=== PATIENT | male | born 1945 | race Caucasian/White ===

== ENCOUNTER → 2024-11-13 | Outpatient (CLI) | payer MEDICARE ==
--- NOTE | 2024-11-14 11:46 | MR ---
EXAMINATION TYPE: MR lumbar spine wo con DATE OF EXAM: 11/13/2024 5:11 PM COMPARISON: None. CLINICAL INDICATION: Male, 78 years old with history of M54.50 LOW BACK PAIN R20.2 PARESTHESIA OF SKI N; PHH, Low back pain into legs, mostly Rt side, Some numbness into thighs TECHNIQUE: Multi planar, multi sequence imaging was performed utilizing: T1-weighted, T2-weighted, a nd turbo inversion recovery imaging of the lumbar spine. IV Contrast: mL (None, if empty) FINDINGS: Alignment: The lumbar vertebral bodies have preserved heights with scoliosis alignment levoscoliosis apex L3. Cord: The conus medullaris and the distal spinal cord appear unremarkable with regards to their signa l intensity and morphology. Bones/Discs: Moderate degeneration changes throughout the spine with osteophyte formation and facet j oint arthropathy. Multilevel disc desiccation is present. Reactive adjoining endplate edema at L3-L4 in the anterior endplate of L1. T12-L1: No evidence of significant spinal canal stenosis or neural foraminal stenosis. L1-L2: No evidence of significant spinal canal stenosis. Facet joint arthropathy mild bilateral neura l foraminal stenosis. L2-L3: Disc bulge and facet joint arthropathy result in mild spinal canal and moderate bilateral neur al foraminal stenosis. L3-L4: Disc bulge and facet joint arthropathy result in severe spinal canal and severe right and mode rate to severe left neural foraminal stenosis. L4-L5: Disc bulge and facet joint arthropathy result in severe spinal canal and moderate to severe bi lateral neural foraminal stenosis. L5-S1: The disc has a rounded posterior morphology without significant spinal canal stenosis. Facet j oint arthropathy with mild bilateral neural foraminal stenosis. No significant spinal canal or neural foraminal stenosis in the remainder of the visualized levels. Other findings: None. IMPRESSION: 1. Severe spinal canal stenosis at L3-L4 L4-L5 secondary disc bulge and facet joint arthropathy. Thi s also degrees of neural foraminal stenosis at these levels. 2. Moderate degeneration changes with scoliosis throughout the spine. [facility], , 11/14/2024 11:44 AM
== END | disposition home or self-care (01) ==
LOC: RADMRIMAIN 16:07
PROVIDERS: ATTEND Family Medicine
DX: M48.061 Spinal stenosis, lumbar region without neurogenic claudication (principal); M51.360 Other intervertebral disc degeneration, lumbar region with discogenic back pain only; R20.2 Paresthesia of skin; M47.816 Spondylosis without myelopathy or radiculopathy, lumbar region; M41.86 Other forms of scoliosis, lumbar region
CPT/HCPCS: 72148

== ENCOUNTER → 2025-01-31 | Outpatient (CLI) | payer MEDICARE | END | disposition home or self-care (01) | LOC: LABWHC1 10:41 | PROVIDERS: ATTEND Orthopaedic Surgery | DX: Z01.812 Encounter for preprocedural laboratory examination (principal); Z22.322 Carrier or suspected carrier of Methicillin resistant Staphylococcus aureus; M48.062 Spinal stenosis, lumbar region with neurogenic claudication | CPT/HCPCS: 86850; 86900; 86901; 87070 ==

== ENCOUNTER 2025-02-07 09:45 | Observation (INO) | payer MEDICARE ==
[2025-02-04 14:52] VITALS: BMI 33.0
--- NOTE | 2025-02-07 07:04 | P.HPOR ---
History of Present Illness H&P Date: 01/31/25 [facility] PROVIDER: LASHELL Jan 31, 2025 10:00?AM SPINE SURGERY H&P CLINICAL AND RISK REVIEW CHICO BERMAN is a 79 YO MALE presenting for evaluation of LOW BACK PAIN AND LE WEAKNESS. It was my pleasure to have seen and examined CHICO BERMAN . In our visit today we have had a chance to go over subjective complaints, physical examination findings and treatments including the natural course history without intervention and various interventional options. 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 Based on the patients imaging, physical exam, and the rapid progression and disabling nature of their symptoms, at this time I recommend surgery in the form of a: L3-5 DECOMPRESSIVE LAMINECTOMY WITH POSTEROLATERAL AND INTERBODY FUSION. I discussed the risk and benefits of this procedure at length with CHICO BERMAN . The patient has agreed to consider pursuing the procedure above mentioned. Prior to surgery, they should follow up with her PCP (Cardio, ID, IM etc) for clearance. Questions were invited and answered, and the patient wishes to proceed as outlined below. Currently, I am recommending: L3-5 DECOMPRESSIVE LAMINECTOMY WITH POSTEROLATERAL AND INTERBODY FUSION Obtain appropriate presurgical workup and clearances as discussed with the patient. Review of surgical risks and benefits as well as an educational packet on the proposed surgical procedure. Risks: All surgical procedures come with inherent risks, including those related to positioning, anesthesia, intraoperative findings, and postoperative complications. It is important to understand that surgery does not come with any guarantee of a successful outcome as complications and adverse events are always possible. The patient was given a handout in the office today discussing the surgical procedure and risks associated with the intervention, both of which were discussed with the patient. These risks include but are not limited to the following: Experiencing same, different or even worse symptoms in back, neck, arms, or legs compared to before surgery. Requiring further surgery or other forms of treatment presently or at some time in the future at same or other levels of the intended spine surgery. On an extreme but fortunately relatively rare basis severe complications such as blindness, stroke, heart attack, temporary and/or permanent nerve injury , paralysis, coma, or may occur, sometimes without known explanation. Surgical complications may include but are not limited to risk of infection, fluid accumulation in the surgical dissection site, including a seroma or hematoma, that requires additional surgery, wound drainage, bleeding, new numbness or weakness, vision changes/loss, spinal fluid leakage, non-healing and/or infected incision, headaches, difficulty or inability to swallow, hoarseness, hemopneumothorax, pneumothorax, impotence, retrograde ejaculation, vaginal dryness; injury to nerves, spinal cord, blood vessels, lymphatics or other vital organs (i.e., bowel injury, injury to the great vessels); heterotopic bone formation; complications related to the hardware such as screws, rods, cages including misplaced hardware, device failure, instrumentation at the wrong spine level, hardware fracture/breakage, or hardware loosening; vertebral failure of the spinal column above or below the newly placed hardware; retained surgical instrumentations or devices and the need for further surgery. Medical risks of the planned spine surgery include but are not limited to generalized Infections to the whole body or local areas outside of the surgical site (sepsis), heart attack, bleeding, anaphylaxis, meningitis, seizure, epilepsy, hearing loss, burn jackson, laceration of the head or other areas of the body, bruising, hypersensitivity of the skin, bladder over distension; allergic reaction; shoulder injury related to positioning; fat, blood and air clots to other areas of the body like heart, lungs, brain; failure of internal organs such as lungs, kidneys, liver and excessive bleeding. If blood transfusions are necessary, note that transfusions may cause intolerance reactions such as anaphylaxis or other complex reactions. Despite best efforts, the results of spine surgery might not heal in terms of bone, soft tissues such as skin, fascia, ligaments, and joints. Additionally, in order to achieve best possible results, spine surgery may be carried out beyond the initially planned levels and involve decompression, fusion including insertion of hardware at levels other than the original intended area of surgical interest change some portions of the procedure in order to ensure the best possible outcomes. With spine surgery and spinal fusion, there are different off label uses of instrumentation (devices, implants and hardware) as well as biological substances (bone morphogenic proteins, demineralized bone matrix) as well as using extra bone from allograft sources (i.e. cadaver bone) or autograft (iliac crest bone, ribs, or the spine itself). The patient has been given information about these practices and their inherent risks and benefits. The patient has had a chance to review all the listed information, has been given print outs detailing this information, and has had all his/her questions answered to their satisfaction. It was my pleasure to have seen and examined CHICO BERMAN . In our visit today we have had a chance to go over my understanding of our patient's current condition, the natural course history without intervention and various interventional options. Questions were invited and answered, and the patient wishes to proceed as outlined above. I have seen and examined the patient for 25 minutes and we have spent more than 50% of the time in repeat and detailed couns eling about the patient's condition, its natural course history without and as much as can be predicted with surgery and re-review of various surgical treatment options. In conclusion, CHICO BERMAN and their family requested we proceed with the above suggested surgery and are willing to accept risks and limitations of the suggested surgery as the nature of the disease process and our best attempts at treatment for the condition. In our visit today the patient and I have had a chance to go over my understanding of their current condition, the natural course history without intervention and various interventional options. Questions were invited and answered, and the patient wishes to proceed as outlined above. I will be sure to keep you updated after the patient returns here for further follow-up. Thank you again for your referral. Please do not hesitate to contact me if you have any further questions. Signed and authenticated by: Feb 02, 2025 1:15?PM EDT DO Bonnie Sheriff [facility] Minim[facility] [address] [facility], [address] [address] This document is confidential, intended only for the named recipient(s) and may contain information that is privileged or exempt from disclosure under applicable law. If you are not the intended recipient(s), you are notified that the dissemination, distribution or copying of this information is strictly prohibited. If you received this message in error, please notify the sender then delete this message. Past Medical History Past Medical History: Hyperlipidemia, Hypertension, Osteoarthritis (OA), Skin Disorder Additional Past Medical History / Comment(s): Psoriasis. History of Any Multi-Drug Resistant Organisms: None Reported Past Surgical History: Hernia Repair, Joint Replacement Additional Past Surgical History / Comment(s): Ventral hernia repair, bilateral knee replacements. Past Anesthesia/Blood Transfusion Reactions: No Reported Reaction, Motion Sickness Smoking Status: Former smoker - Past Family History Brother(s) Family Medical History: Cancer Medications and Allergies Home Medications Medication Instructions Recorded Confirmed Type Acetaminophen [Tylenol Extra 500 - 1,000 mg PO Q4-6H PRN 02/04/25 02/04/25 History Strength] Acetylcysteine [Nac] 600 mg PO HS 02/04/25 02/04/25 History Aspirin [Adult Low Dose Aspirin EC] 81 mg PO HS 02/04/25 02/04/25 History Cholecalciferol [Vitamin D3 (125 125 mcg PO DAILY 02/04/25 02/04/25 History Mcg = 5000 Iu)] Cranberry Fruit Extract [Cranberry] 500 mg PO DAILY 02/04/25 02/04/25 History Fenofibrate Nanocrystallized 145 mg PO HS 02/04/25 02/04/25 History [Fenofibrate] Lisinopril-Hctz 20-12.5 mg 1 tab PO QAM 02/04/25 02/04/25 History [Zestoretic 20-12.5] Magnesium Glycinate 500 mg PO HS 02/04/25 02/04/25 History Magnesium. 420 mg PO HS 02/04/25 02/04/25 History Multivitamins, Thera [Multivitamin 1 tab PO DAILY 02/04/25 02/04/25 History (formulary)] Naproxen (Unknown Dose) 1 tab PO BID 02/04/25 02/04/25 History Quercetin 500 mg PO HS 02/04/25 02/04/25 History Saw [place] 500 mg PO DAILY 02/04/25 02/04/25 History Tumeric (Unknown Dose) 1 tab PO DAILY 02/04/25 02/04/25 History Ubidecarenone [Co Q-10] 100 mg PO HS 02/04/25 02/04/25 History Zinc (Unknown Dose) 1 tab PO HS 02/04/25 02/04/25 History lysine HCL [l-Lysine] 500 mg PO HS 02/04/25 02/04/25 History Allergies Allergy/AdvReac Type Severity Reaction Status Date / Time Penicillins Allergy Rash/Hives Verified 02/04/25 14:52 Tape Allergy Severe Rash/Hives Uncoded 02/04/25 14:52 Physical Examination Osteopathic Statement: *. No significant issues noted on an osteopathic structural exam other than those noted in the History and Physical/Consult.
[~2025-02-07 09:45] MED LIST: ACETAMINOPHEN TAB 500 MG TAB PO PRN; LIDOCAINE 1% (10MG/ML) FOR IV START INTRADERMA PRN; ONDANSETRON 4 MG/2 ML VIAL IVP PRN; TRANEXAMIC 1,000 MG/100ML-NACL 1,000 MG in SALINE 1 100ML.BAG IVPB PRN
[2025-02-07] MEDS: IV FLUID CONTINUATION 1,000 ML IV ONE ×5 (10:07→16:10)
[2025-02-07] MEDS: ONDANSETRON 4 MG/2 ML VIAL IVP ONE (10:44)
[2025-02-07] MEDS: LACTATED RINGERS 1,000 ML IV SCH (10:44)
[2025-02-07] MEDS: GABAPENTIN 300 MG CAP PO PRN (10:44)
[2025-02-07] MEDS ORDERED: ROCURONIUM 10 MG/ML (5 ML VIAL) IV ONE (12:37)
[2025-02-07] MEDS ORDERED: SUCCINYLCHOLINE CHLORIDE 200 MG/10 ML VIAL IV ONE (12:37)
[2025-02-07] MEDS ORDERED: NEOSTIGMINE 1 MG/ML 10 ML VIAL ONE (12:37)
[2025-02-07] MEDS ORDERED: TRANEXAMIC 1,000 MG/100ML-NACL PREMIX BAG ONE (12:37)
[2025-02-07] MEDS ORDERED: KETAMINE HCL IN 0.9 % NACL 50 MG/5 ML SYRINGE ONE (12:37)
[2025-02-07] MEDS ORDERED: ePHEDrine 50 MG/ML 1 ML VIAL ONE (12:37)
[2025-02-07] MEDS ORDERED: fentaNYL (PF) 50 MCG/ML 2 ML AMP ONE (12:37)
[2025-02-07] MEDS ORDERED: GLYCOPYRROLATE 0.2 MG/ML 2 ML VIAL ONE (12:37)
[2025-02-07] MEDS ORDERED: PROPOFOL 10 MG/ML 20 ML VIAL IV ONE (12:37)
[2025-02-07] MEDS ORDERED: LIDOCAINE 1% INJ 10MG/ML (20 ML MDV) ONE (12:37)
[2025-02-07] MEDS: THROMBIN (BOVINE) 5,000 UNIT VIAL TOPICAL ONE (13:53)
[2025-02-07] MEDS: GENTAMICIN 80 MG in SODIUM CHLORIDE 0.9% IRRIGATIO 3,000 ML IRRIGATION ONE (14:04)
[2025-02-07] MEDS: ceFAZolin 3,000 MG in SODIUM CHLORIDE 0.9% IRRIGATIO 3,000 ML IRRIGATION ONE (14:04)
[2025-02-07] MEDS: LACTATED RINGERS 1,000 ML IV ONE ×2 (14:28)
[2025-02-07] MEDS: VANCOMYCIN 1,000 MG VIAL MISCELLANE ONE (14:30)
[2025-02-07] MEDS ORDERED: MAG HYDROX/AL HYDROX/SIMETH 30 ML CUP PO PRN (15:45)
[2025-02-07] MEDS ORDERED: ONDANSETRON 4 MG/2 ML VIAL IVP PRN (15:45)
--- NOTE | 2025-02-07 15:49 | FL ---
EXAMINATION TYPE: FL guidance operating room, XR lumbar spine 2 or 3V DATE OF EXAM: 02/07/2025 FLUOROSCOPY L3-L5 LAMINECTOMY AND FUSION. 2.08 MINS FLUORO 13 IMAGES DAP=51.866 Gycm2 [facility], Workstation: [facility], 02/07/2025 3:47 PM
--- NOTE | 2025-02-07 16:10 | P.OP ---
Date of Procedure: 02/07/25 Preoperative Diagnosis: 1. 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 NEUROGENIC CLAUDICATION 3. LUMBAR STENOSIS WITH RADICULOPATHY B/L LE 4. LOW BACK PAIN 5. BLE WEAKNESS Postoperative Diagnosis: 1. 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 NEUROGENIC CLAUDICATION 3. LUMBAR STENOSIS WITH RADICULOPATHY B/L LE 4. LOW BACK PAIN 5. BLE WEAKNESS Procedure(s) Performed: 1. L3-4 INTRADISCAL, 3 COLUMN, OSTEOTOMY FOR DEFORMITY CORRECTION 2. L4-5 3. L3-4 POSTEROLATERAL AND INTERBODY FUSION 4. L4-5 5. SEGMENTAL INSTRUMENTATION L3-5 6. L3-4 AND L4-5 BILATERAL LAMINECTOMY, COMPLETE FACETECTOMY AND FORAMINOTOMY FOR COMPLETE NEURAL DECOMPRESSION, DEFORMITY CORRECTION AND CAGE PLACEMENT 7. INSERTION OF BIOMECHANICAL DEVICE x2 CAGES L3-4, L4-5 USE OF IONM ALL SCREWS TESTING > 20 mA MOD22: THIS CASE TOOK 60% LONGER THAN EXPECTED DUE TO COMORBID CONDITIONS, BMI >30; EXTENT OF LUMBAR DISEASE AND TECHNICALLITY OF THE CASE. Implants: -FRANSISCO EVEREST RODS AND SCREWS -GLOBUS SABLE CAGE 8 DEG, LONG 7-12 MM, 10 AND 12 mm WIDTH -ARTHROCELL, ALLOCELL, FRANSISCO DBM, AUTOGRAFT, CONTOUR Anesthesia: GETA Surgeon: Daniel Meza Produce Wrapper #1: Marco A Gore (was present and assisted with all aspects of the case from position to dressing placement. ) Estimated Blood Loss (ml): 350 IV fluids (ml): 1,650 Urine output (ml): 320 Pathology: none sent Condition: stable Disposition: PACU Indications for Procedure: CHICO BERMAN is a 79 YO MALE presenting for evaluation of LOW BACK PAIN AND LE WEAKNESS. It was my pleasure to have seen and examined CHICO BERMAN . In our visit today we have had a chance to go over subjective complaints, physical examination findings and treatments including the natural course history without intervention and various interventional options. 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 Based on the patients imaging, physical exam, and the rapid progression and disabling nature of their symptoms, at this time I recommend surgery in the form of a: L3-5 DECOMPRESSIVE LAMINECTOMY WITH POSTEROLATERAL AND INTERBODY FUSION. I discussed the risk and benefits of this procedure at length with CHICO BERMAN . The patient has agreed to consider pursuing the procedure above mentioned. Prior to surgery, they should follow up with her PCP (Cardio, ID, IM etc) for clearance. Questions were invited and answered, and the patient wishes to proceed as outlined below. Currently, I am recommending: L3-5 DECOMPRESSIVE LAMINECTOMY WITH POSTEROLATERAL AND INTERBODY FUSION Description of Procedure: L3-5 decompression fusion open, free hand. The patient was seen and examined in the preoperative area. All preoperative protocols were followed. Informed consent was obtained, risks and benefits of the procedure were discussed at length. Risks including bleeding infection damage to the surrounding tissue and risk of reoperation were discussed with the patient. Risk of anesthesia up to and including was discussed with the patient. These are outlined in the risk review. They were willing to accept these risks and all the risks of surgery. The patient was given a weight-based dose of antibiotics in the form of 2 g Ancef. The patient was seen and evaluated by the anesthesia team who deemed them fit for surgery. The site was marked, the patient was willing to proceed with the procedure. The patient was transferred to the operative suite by the Department of an esthesia. They were then drifted off to sleep by the department anesthesia and GETA was performed. The patient tolerated this well. Hernnádez catheter was placed by nursing staff, a-traumatically. Once confirmation of lines and ventilation the patient was transferred to a prone Mohan table very carefully. All bony prominences including wrists, elbows, axilla, chest, hips, and thighs, and feet were padded very well. Special attention was paid to the genitalia, and these were padded accordingly. SCDs were placed on bilateral lower extremities and were connected. Arms were well padded and placed on arm boards up and out in the 90/90 position. Once in position, again we confirmed good ventilation capabilities and that lines were running appropriately. The patients Lumbar spine was then exposed. 1010s were placed outlining the incision site. Standard alcohol was used to clean the incision site and allowed to dry. C-arm was used to needle localize the pedicles at L3-5 and bio-ivania the patient and confirm level for incision which was marked with a skin marker. Operative briefing was performed with all teams and everyone in agreement to proceed. The patient was then prepped and draped in a normal sterile fashion. Timeout was then performed, and all parties agreed with the procedure to be performed. Midline skin incision was made over the previously bio-marked area and diss ection taken down over the SP of L3-L5. L3-5 was taken out over facet joints and TPs and a penfield 4 used to ivania the L4 pedicle. Lateral image used to confirm levels. Once confirmed, screws were removed from L4-5 b/l along with rods. The L4 screws were loose b/l and when removed there was still motion at this segment. The fusion was explored and there was minimal bone formation posteriorly. We then proceeded to place screws b/l at pedicles from L3-5 using Lateral C arm and free hand technique. Bo was used to create a aeroplane pilot hole, gear shift passed then a ball tip feeler to confirm within the pedicles. Screw was measured and placed. Once screws were placed they were confirmed to be in good position using AP and Lateral fluoroscopy. The wound was then irrigated. Screws were tested and all tested above 20 mA. We then proceeded to decompression and cage placement. Attention was then turned to interbody fusion at L4-5. Bilateral laminectomy, complete facetectomy and foraminotomy performed at L4-5 using high speed bo and Kerrison rongeur. The ligamentum was removed and the dural sac decompressed. Exiting and traversing roots visualized and decompressed. Neural elements were then protected, and disc space accessed with an osteotome. Intradiscal, 3 column, osteotomy was then done for deformity correction. Osteotome was passed into the anterior ? of the L4 vertebral body followed by the same at the cranial portion of L5. This allowed for loosening of the level. The ALL was carefully stretched with distraction. Complete discectomy was then done with ana laura, curette, rongure etc. Sequential shaving then done under lateral imaging and complete discectomy performed using ana laura, pituitary and curette. Once good bleeding endplates accomplished and good height latter day with trials, a combination of autograft, allograft and synthetic placed anterior in the disc space. The cage was then selected and impacted into place under lateral imaging. The cage was then expanded restoring height, lordosis and alignment. The cage was backfilled with bone graft through a funnel. The sap analyst was removed and the area inspected. Good cage placement, stable cage and no injuries. Area was irrigated copiously, and meticulous hemostasis achieved. The wound and disc spaces were irrigated and meticulous hemostasis achieved. Attention was then turned to interbody fusion at L3-4. Bilateral laminectomy, complete facetectomy and foraminotomy performed at L3-4 using high speed bo and Kerrison rongeur. The ligamentum was removed and the dural sac decompressed. Exiting and traversing roots visualized and decompressed. Neural elements were then protected, and disc space accessed with an osteotome. Intradiscal, 3 column, osteotomy was then done for deformity correction. Osteotome was passed into the anterior ? of the L3 vertebral body followed by the same at the cranial portion of L4. This allowed for loosening of the level. The ALL was carefully stretched with distraction. Complete discectomy was then done with ana laura, curette, rongure etc. Sequential shaving then done under lateral imaging and complete discectomy performed using ana laura, pituitary and curette. Once good bleeding endplates accomplished and good height latter day with trials, a combination of autograft, allograft and synthetic placed anterior in the disc space. The cage was then selected and impacted into place under lateral imaging. The cage was then expanded restoring height, lordosis and alignment. The cage was backfilled with bone graft through a funnel. The inse rter was removed and the area inspected. Good cage placement, stable cage and no injuries. The area was irrigated copiously, and meticulous hemostasis achieved. The wound and disc spaces were irrigated and meticulous hemostasis achieved. Rods were then sized and selected and placed into L5 screws b/l. Set screws locked these in place and then sequentially reduced into L4 and L3 b/l for reduction of listhesis. This was accomplished. Set screws were then all placed and finally tightened. A cross link was selected and placed and final tightened. TPs were then decorticated with a high speed bo. The wound was irrigated with 3L Ancef irrigation, 3L gentamicin irrigation, 1L Irricept, 1L Betadine and 3L NSS. Surgicel was placed over the dura. Autograft and MagnatOs then placed in the posterolateral gutters and impacted into place. Deep drain placed and secured to the skin. 2 g Vancomycin powder placed in the wound bed. Final images confirmed good placement of hardware and good reduction of listhesis as well as latter day of height and lordosis. Fascia was then closed with #1 PDS. Deep subq closed with 0 Vicryl. Superficial subq closed with 2-0 Vicryl and skin with yfn. Wound edges approximated very well. The wound was then cleaned with alcohol and dried. Wounds dressed with adaptic, 4x4, abd drain sponge and tegaderms. The patient was then transferred off the table back to their hospital bed a- traumatically. The drain continued to hold suction. They were extubated by the department of anesthesia. They were then transferred to PACU in stable condition having tolerated the procedure with no complications.
[2025-02-07] MEDS: HYDROmorphone 0.5 MG/0.5 ML SYRINGE IVP PRN ×2 (16:29→20:53)
[2025-02-07] MEDS: GABAPENTIN 300 MG CAP PO SCH (19:36)
[2025-02-07] MEDS: FENOFIBRATE 160 MG TAB PO SCH (20:53)
[2025-02-07] MEDS ORDERED: NON FORMULARY DRUG (Acetylcysteine [Nac] 500 MG Capsule) PO SCH (21:00)
[2025-02-08] MEDS: HYDROcodone/APAP 5-325MG 1 EACH TAB PO PRN (00:20)
[2025-02-08] MEDS: CYCLOBENZAPRINE 5 MG TAB PO PRN (00:20)
[2025-02-08] MEDS: ACETAMINOPHEN TAB 325 MG TAB PO SCH (06:12)
--- NOTE | 2025-02-08 07:35 | CT ---
EXAMINATION TYPE: CT lumbar spine wo con DATE OF EXAM: 02/08/2025 12:13 AM COMPARISON: MRI 11/23/2024. CLINICAL INDICATION: Male, 79 years old with history of S/P l3-l3 DECOMPR FUSION; PHH, S/P l3-l3 DECO MPR FUSION TECHNIQUE: CT of the lumbar spine without contrast. Coronal and sagittal reconstructions performed. CT DLP: 1589.7 mGycm, Automated exposure control for dose reduction was used. FINDINGS: Redemonstrated degenerative levoconvex scoliosis lumbar spine. 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 Postsurgical change with laminectomies L3-L5 and placement of posterior and interbody lumbar fusion h ardware at these levels as well. Lateral osseous fusion bone graft material extends up to the L1 leve l. Posterior midline skin yfn and scattered subcutaneous and extradural air related to the surgery. Surgical drain is present. Deeper compression of the spinal canal at the L3-L4 and L4-L5 levels. Mild to moderate degenerative d isc disease remains along the other levels with posterior disc bulge impressing on the ventral thecal sac at L1-L2 and L2-L3. Degenerative grade 1 retrolisthesis L2-L3 similar. Vertebral body heights are preserved. Prominent hypertrophic facet arthropathy especially mid to lower lumbar spine. On the right, limited due to metal artifact. Possible severe neuroforaminal stenoses L3-L4 and L4-L5. Mild L2-L3 and L5-S1. On the left, also limited due to metal artifacts. Possible moderate to severe neuroforaminal stenosis L4-L5. Suspect foraminotomy change L2-L4. Mild to moderate neural foraminal stenosis L2-L3 and L5-S1 . IMPRESSION: Interval L3 through L5 posterior and interbody lumbar fusion with laminectomies decompressing the spi nal canal. Recent postoperative changes. Details above. [facility], Workstation: [email or web address], 02/08/2025 7:33 AM
[2025-02-08 08:46] LABS: ALT 20 U/L (10-49); AST 36 U/L (14-35); Albumin 3.5 g/dL (3.8-4.9); Albumin/Globulin Ratio 1.94 Ratio (1.60-3.17); Alkaline Phosphatase 34 U/L (41-126); BUN/Creat Ratio 26.17 Ratio (12.00-20.00); Blood Urea Nitrogen 15.7 mg/dL (9.0-27.0); Calcium 8.2 mg/dL (8.7-10.3); Carbon Dioxide 23.6 mmol/L (21.6-31.8); Chloride 102 mmol/L (96-109); Globulin 1.8 g/dL (1.6-3.3); Glucose 106 mg/dL (70-110); Potassium 3.7 mmol/L (3.5-5.5); Sodium 137 mmol/L (135-145); Total Bilirubin 0.3 mg/dL (0.3-1.2); Total Protein 5.3 g/dL (6.2-8.2)
[2025-02-08 08:47] LABS: Basophils # (A) 0.02 X 10*3/uL (0.00-0.10); Basophils % (A) 0.2 %; Eosinophils # (A) 0.01 X 10*3/uL (0.04-0.35); Eosinophils % (A) 0.1 %; HCT 35.4 % (39.6-50.0); HGB 11.9 g/dL (13.0-17.0); Lymphocytes # (A) 1.29 X 10*3/uL (0.90-5.00); Lymphocytes % (A) 12.7 %; MCH 30.9 pg (27.0-32.0); MCHC 33.6 g/dL (32.0-37.0); MCV 91.9 FL (80.0-97.0); Mean Platelet Volume 10.5 FL (9.5-12.2); Monocytes # (A) 0.71 X 10*3/uL (0.20-1.00); NRBC Per 100 WBC 0 X 10*3/uL (0.00-0.01); Neutrophils % (A) 79.5 %; Platelet Count 203 X 10*3/uL (140-440); RBC 3.85 X 10*6/uL (4.40-5.60); RDW 12.7 % (11.5-14.5); WBC 10.18 X 10*3/uL (4.50-10.00)
[2025-02-08] MEDS ORDERED: NON FORMULARY DRUG (Cranberry Fruit Extract [Cranberry] 500 MG Tablet) PO SCH (09:00)
--- NOTE | 2025-02-08 09:35 | P.CONS ---
History of Present Illness - Reason for Consult Consult date: 02/07/25 medical managment - History of Present Illness Rafa Olivo is a 79-year-old male patient of Dr. Swain who presented for an elective lumbar fusion with Dr. Goodman jaimes on 02/07/2025. Patient has a past medical history of hyperlipidemia, hypertension, osteoarthritis, psoriasis and joint replacement. At this time patient is resting comfortably in bed. Patient has Hernández catheter in place. Patient denies chest pain or shortness of breath. Patient denies nausea vomiting or diarrhea. Patient denies any urinary burning or frequency. Current vital signs temp 97.0, heart rate 58, respiratory rate 16, blood pressure 99/73 with a pulse ox of 96% on room air. Review of Systems Please refer to HPI otherwise unremarkable Past Medical History Past Medical History: Hyperlipidemia, Hypertension, Osteoarthritis (OA), Skin Disorder Additional Past Medical History / Comment(s): Psoriasis. History of Any Multi-Drug Resistant Organisms: None Reported Past Surgical History: Hernia Repair, Joint Replacement Additional Past Surgical History / Comment(s): Ventral hernia repair, bilateral knee replacements. Past Anesthesia/Blood Transfusion Reactions: No Reported Reaction, Motion Sickness Smoking Status: Former smoker - Past Family History Brother(s) Family Medical History: Cancer Medications and Allergies Home Medications Medication Instructions Recorded Confirmed Type Acetaminophen [Tylenol Extra 500 - 1,000 mg PO Q4-6H PRN 02/04/25 02/07/25 History Strength] Acetylcysteine [Nac] 600 mg PO HS 02/04/25 02/07/25 History Aspirin [Adult Low Dose Aspirin EC] 81 mg PO HS 02/04/25 02/07/25 History Cholecalciferol [Vitamin D3 (125 125 mcg PO DAILY 02/04/25 02/07/25 History Mcg = 5000 Iu)] Cranberry Fruit Extract [Cranberry] 500 mg PO DAILY 02/04/25 02/07/25 History Fenofibrate Nanocrystallized 145 mg PO HS 02/04/25 02/07/25 History [Fenofibrate] Lisinopril-Hctz 20-12.5 mg 1 tab PO QAM 02/04/25 02/07/25 History [Zestoretic 20-12.5] Magnesium Glycinate 500 mg PO HS 02/04/25 02/07/25 History Magnesium. 420 mg PO HS 02/04/25 02/07/25 History Multivitamins, Thera [Multivitamin 1 tab PO DAILY 02/04/25 02/07/25 History (formulary)] Naproxen (Unknown Dose) 1 tab PO BID 02/04/25 02/07/25 History Quercetin 500 mg PO HS 02/04/25 02/07/25 History Saw [place] 500 mg PO DAILY 02/04/25 02/07/25 History Tumeric (Unknown Dose) 1 tab PO DAILY 02/04/25 02/07/25 History Ubidecarenone [Co Q-10] 100 mg PO HS 02/04/25 02/07/25 History Zinc (Unknown Dose) 1 tab PO HS 02/04/25 02/07/25 History lysine HCL [l-Lysine] 500 mg PO HS 02/04/25 02/07/25 History Allergies Allergy/AdvReac Type Severity Reaction Status Date / Time Penicillins Allergy Rash/Hives Verified 02/04/25 14:52 Tape Allergy Severe Rash/Hives Uncoded 02/04/25 14:52 Physical Exam Vitals: Vital Signs Temp Pulse Pulse Resp BP Pulse Ox 02/07/25 16:41 79 14 151/67 97 02/07/25 16:25 74 14 108/55 98 02/07/25 16:18 97.0 F L 58 L 16 99/73 96 02/07/25 10:17 97.5 F L 72 18 183/86 95 Intake and Output 02/07/25 02/07/25 02/07/25 06:59 14:59 22:59 Intake Total 2252 0 Output Total 875 Balance 1377 0 Intake: IV 2252 0 Output: Urine 525 Estimated Blood Loss 350 Other: Weight 98.5 kg Head normocephalic Neck supple Lungs clear to auscultation bilaterally no wheezing or crackles Heart regular rate and rhythm S1-S2, no rub or gallop Abdomen is soft nontender nondistended positive bowel sounds no hepatosplenomegaly Extremities no edema Neuro alert and orientated to 3 Results CBC & Chem 7: 02/08/25 05:24 02/08/25 05:24 Assessment and Plan Assessment: 1. Status post lumbar fusion with Dr. Miles on 02/07/2025 2. History of hyperlipidemia 3. History of essential hypertension 4. History of psoriasis 5. History of hernia repair Thank you for this consultation we will continue to follow patient closely throughout stay Repeat labs ordered in a.m. Time with Patient: Greater than 30 (Greater than 60% of the total time spent in counseling and coordination of care)
--- NOTE | 2025-02-08 09:36 | P.PN ---
Subjective Progress Note Date: 02/08/25 Rafa Olivo is a 79-year-old male patient of Dr. Swain who presented for an elective lumbar fusion with Dr. Goodman jaimes on 02/07/2025. Patient has a past medical history of hyperlipidemia, hypertension, osteoarthritis, psoriasis and joint replacement. At this time patient is resting comfortably in bed. Patient has Hernández catheter in place. Patient denies chest pain or shortness of breath. Patient denies nausea vomiting or diarrhea. Patient denies any urinary burning or frequency. Current vital signs temp 97.0, heart rate 58, respiratory rate 16, blood pressure 99/73 with a pulse ox of 96% on room air. On 02/08/2025 patient is alert and oriented x 3. Patient is complaining about some lower back pain. Patient denies chest pain or shortness of breath. Patient denies nausea vomiting or diarrhea. Patient denies any urinary burning or frequency. Current vital signs temp 98.0, heart rate 74, respiratory rate 18, blood pressure 119/64 with a pulse ox of 97% on room air. Discharge plan pranay to home per orthopedic services Objective - Vital Signs Vital signs: Vital Signs Temp 98.0 F 02/08/25 06:56 Pulse 74 02/08/25 06:56 Resp 18 02/08/25 06:56 BP 119/64 02/08/25 06:56 Pulse Ox 97 02/08/25 06:56 FiO2 Intake & Output 02/07/25 02/08/25 02/08/25 18:59 06:59 18:59 Intake Total 2652 Output Total 1025 1330 Balance 1627 -1330 Weight 98.5 kg Intake: IV 2652 Output: Drainage 230 Lower Back 230 Urine 675 1100 Estimated Blood Loss 350 Other: Voiding Method Indwelling Catheter Indwelling Catheter - Exam Head normocephalic Neck supple Lungs clear to auscultation bilaterally no wheezing or crackles Heart regular rate and rhythm S1-S2, no rub or gallop Abdomen is soft nontender nondistended positive bowel sounds no hepatosplenomegaly Extremities no edema Neuro alert and orientated to 3 - Labs CBC & Chem 7: 02/08/25 05:24 02/08/25 05:24 Labs: Abnormal Lab Results - Last 24 Hours (Table) 02/08/25 02/08/25 Range/Units 05:24 05:24 WBC 10.18 H (4.50-10.00) X 10*3/uL RBC 3.85 L (4.40-5.60) X 10*6/uL Hgb 11.9 L (13.0-17.0) g/dL Hct 35.4 L (39.6-50.0) % Immature Gran # 0.05 H (0.00-0.04) X 10*3/uL Neutrophils # 8.10 H (1.80-7.70) X 10*3/uL Eosinophils # 0.01 L (0.04-0.35) X 10*3/uL BUN/Creatinine Ratio 26.17 H (12.00-20.00) Ratio Calcium 8.2 L (8.7-10.3) mg/dL AST 36 H (14-35) U/L Alkaline Phosphatase 34 L (41-126) U/L Total Protein 5.3 L (6.2-8.2) g/dL Albumin 3.5 L (3.8-4.9) g/dL Assessment and Plan Assessment: 1. Status post lumbar fusion with Dr. Miles on 02/07/2025 2. History of hyperlipidemia 3. History of essential hypertension 4. History of psoriasis 5. History of hernia repair Thank you for this consultation we will continue to follow patient closely throughout stay Repeat labs ordered in a.m.
[2025-02-08] MEDS: CHOLECALCIFEROL 125 MCG (5000 IU) TABLET PO SCH (09:48)
[2025-02-08] MEDS: MULTIVITAMINS, THERA 1 EACH TAB PO SCH (09:48)
[2025-02-08] MEDS: LISINOPRIL-HCTZ 20-12.5 MG 1 EACH TAB PO SCH (09:48)
[2025-02-08] MEDS: HYDROmorphone 1 MG/ML 1 ML SYRINGE IVP PRN (09:50)
--- NOTE | 2025-02-08 10:52 | P.PN ---
Subjective Progress Note Date: 02/08/25 Principal diagnosis: 1. 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 NEUROGENIC CLAUDICATION 3. LUMBAR STENOSIS WITH RADICULOPATHY B/L LE 4. LOW BACK PAIN 5. BLE WEAKNESS Patient stable at bedside this morning with dressing present over lumbar spine and drain in place to half suction Hernández/catheter currently in place. Patient says he just finished working with physical therapy this morning and walked around the room using a walker to aid in ambulation. Patient says he did get a little bit of burning in the back last night and does note there was somewhat of a resolution in the burning pain in his leg last night but when he got up with therapy this morning and got back into bed when finishing the therapy the burning seem to be coming back. Patient says oral medication has been helping with pain. Patient says he does have walker for home. Patient denies any chest pain, fever, shortness of breath, nausea, vomiting, change in vision, loss of bowel/bladder control. Objective - Vital Signs Vital signs: Vital Signs Temp 98.0 F 02/08/25 06:56 Pulse 74 02/08/25 06:56 Resp 18 02/08/25 06:56 BP 119/64 02/08/25 06:56 Pulse Ox 97 02/08/25 06:56 FiO2 Intake & Output 02/07/25 02/08/25 02/08/25 18:59 06:59 18:59 Intake Total 2652 Output Total 1025 1330 Balance 1627 -1330 Weight 98.5 kg Intake: IV 2652 Output: Drainage 230 Lower Back 230 Urine 675 1100 Estimated Blood Loss 350 Other: Voiding Method Indwelling Catheter Indwelling Catheter - Exam Hernández/catheter currently in place as well as drain with moderate serosanguineous output at half suction. Postop dressing appears to be clean, dry, intact. Maintain dressing clean, dry, intact. Plan for dressing change tomorrow. Somewhat of a dermatomal deficit to the bilateral lower extremities at L3-L5. Sensation is equal, symmetric, by intact throughout the extremities and rest of exam. There is generalized tenderness to palpation over the lumbar spine near incision. Nontender on rest of exam. Patient does have a little bit limited range of motion in the bilateral lower extremities and hip flexion's extension and knee flexion/extension while resting in bed. Patient does have good range of motion in ankle dorsi/plantarflexion bilaterally. Patient does have good range of motion in bilateral upper extremities on exam. 4-/5 in all major motor groups in bilateral lower extremities. 4+/5 in all major motor groups in bilateral upper extremities. Radial pulse intact, 2+ bilat. cap refill under 3 seconds in digits of upper extremities. Negative clonus bilaterally. No Homans bilaterally. Negative Wei bilaterally. - Labs CBC & Chem 7: 02/08/25 05:24 02/08/25 05:24 Labs: Abnormal Lab Results - Last 24 Hours (Table) 02/08/25 02/08/25 Range/Units 05:24 05:24 WBC 10.18 H (4.50-10.00) X 10*3/uL RBC 3.85 L (4.40-5.60) X 10*6/uL Hgb 11.9 L (13.0-17.0) g/dL Hct 35.4 L (39.6-50.0) % Immature Gran # 0.05 H (0.00-0.04) X 10*3/uL Neutrophils # 8.10 H (1.80-7.70) X 10*3/uL Eosinophils # 0.01 L (0.04-0.35) X 10*3/uL BUN/Creatinine Ratio 26.17 H (12.00-20.00) Ratio Calcium 8.2 L (8.7-10.3) mg/dL AST 36 H (14-35) U/L Alkaline Phosphatase 34 L (41-126) U/L Total Protein 5.3 L (6.2-8.2) g/dL Albumin 3.5 L (3.8-4.9) g/dL Assessment and Plan Assessment: 1. 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 NEUROGENIC CLAUDICATION 3. LUMBAR STENOSIS WITH RADICULOPATHY B/L LE 4. LOW BACK PAIN 5. BLE WEAKNESS -Postop day 1 status post L3-L5 decompression and fusion Plan: 1. 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 Maintain Hernández/catheter today. Plan for removal tomorrow. Maintain dressing to half suction at this time. 230 cc serosanguineous drainage overnight. Assess dressing daily. Plan for possible dressing change tomorrow. We will continue to follow patient during stay in hospital. Discharge planning pending. 2. Appreciate medical management 3. Pain management -[place]; Flexeril; gabapentin 4. DVT prophylaxis -mechanical 5. GI prophylaxis -senna; milk of mag 6. PT/OT -weightbearing as tolerated with walker and brace on while up and about 7. Encourage incentive spirometer use 8. Discharge planning -pending Time with Patient: Less than 30
[2025-02-08] MEDS: SENNOSIDES-DOCUSATE SODIUM 1 EACH TAB PO PRN (16:43)
[2025-02-08] MEDS ORDERED: HYDROmorphone 2 MG/ML 1 ML SYRINGE IVP PRN (19:01)
[2025-02-09] MEDS: HYDROcodone/APAP 10-325MG 1 EACH TAB PO PRN (05:35)
--- NOTE | 2025-02-09 09:13 | P.PN ---
Subjective Progress Note Date: 02/09/25 Rafa Olivo is a 79-year-old male patient of Dr. Swain who presented for an elective lumbar fusion with Dr. Goodman jaimes on 02/07/2025. Patient has a past medical history of hyperlipidemia, hypertension, osteoarthritis, psoriasis and joint replacement. At this time patient is resting comfortably in bed. Patient has Hernández catheter in place. Patient denies chest pain or shortness of breath. Patient denies nausea vomiting or diarrhea. Patient denies any urinary burning or frequency. Current vital signs temp 97.0, heart rate 58, respiratory rate 16, blood pressure 99/73 with a pulse ox of 96% on room air. On 02/08/2025 patient is alert and oriented x 3. Patient is complaining about some lower back pain. Patient denies chest pain or shortness of breath. Patient denies nausea vomiting or diarrhea. Patient denies any urinary burning or frequency. Current vital signs temp 98.0, heart rate 74, respiratory rate 18, blood pressure 119/64 with a pulse ox of 97% on room air. Discharge plan pranay to home per orthopedic services. On 02/09/2025 patient was seen and examined on the medical floor he is alert and oriented x 3 in no apparent distress, there is no fever or chills no headache or dizziness no chest pain no shortness of breath no cough no nausea or vomiting no abdominal pain no diarrhea no blood in the stools, no burning with urination no frequency or urgency and no hematuria. Vital examination reveals a temperature of 98.1 pulse 90 respiration 18 blood pressure 145/70 pulse ox 94% on room air. Objective - Vital Signs Vital signs: Vital Signs Temp 98.1 F 02/09/25 07:14 Pulse 90 02/09/25 07:14 Resp 18 02/09/25 07:14 BP 145/70 02/09/25 07:14 Pulse Ox 94 L 02/09/25 07:14 FiO2 Intake & Output 02/08/25 02/09/25 02/09/25 18:59 06:59 18:59 Output Total 765 1580 Balance -765 -1580 Output: Drainage 110 80 Lower Back 110 80 Urine 655 1500 Other: Voiding Method Indwelling Catheter Indwelling Catheter - Exam Head normocephalic Neck supple Lungs clear to auscultation bilaterally no wheezing or crackles Heart regular rate and rhythm S1-S2, no rub or gallop Abdomen is soft nontender nondistended positive bowel sounds no hepatosplenomegaly Extremities no edema Neuro alert and orientated to 3 - Labs CBC & Chem 7: 02/08/25 05:24 02/08/25 05:24 Assessment and Plan Assessment: 1. Status post lumbar fusion with Dr. Meza on 02/07/2025 2. History of hyperlipidemia 3. History of essential hypertension 4. History of psoriasis 5. History of hernia repair Thank you for this consultation we will continue to follow patient closely throughout stay Repeat labs ordered in a.m.
[2025-02-09 09:33] LABS: Basophils # (A) 0.03 X 10*3/uL (0.00-0.10); Basophils % (A) 0.3 %; Eosinophils # (A) 0.09 X 10*3/uL (0.04-0.35); Eosinophils % (A) 0.9 %; HCT 35.2 % (39.6-50.0); HGB 11.9 g/dL (13.0-17.0); Lymphocytes # (A) 0.98 X 10*3/uL (0.90-5.00); MCH 31.3 pg (27.0-32.0); MCHC 33.8 g/dL (32.0-37.0); MCV 92.6 FL (80.0-97.0); Mean Platelet Volume 10.2 FL (9.5-12.2); Monocytes # (A) 1.08 X 10*3/uL (0.20-1.00); NRBC Per 100 WBC 0 X 10*3/uL (0.00-0.01); Neutrophils # (A) 7.59 X 10*3/uL (1.80-7.70); Neutrophils % (A) 77.4 %; Platelet Count 180 X 10*3/uL (140-440); RDW 12.8 % (11.5-14.5); WBC 9.81 X 10*3/uL (4.50-10.00)
[2025-02-09 09:47] LABS: ALT 18 U/L (10-49); AST 30 U/L (14-35); Albumin 3.5 g/dL (3.8-4.9); Albumin/Globulin Ratio 2.06 Ratio (1.60-3.17); Alkaline Phosphatase 36 U/L (41-126); BUN/Creat Ratio 22.83 Ratio (12.00-20.00); Blood Urea Nitrogen 13.7 mg/dL (9.0-27.0); Calcium 8.1 mg/dL (8.7-10.3); Carbon Dioxide 24.1 mmol/L (21.6-31.8); Chloride 103 mmol/L (96-109); Globulin 1.7 g/dL (1.6-3.3); Glucose 109 mg/dL (70-110); Potassium 3.5 mmol/L (3.5-5.5); Sodium 137 mmol/L (135-145); Total Bilirubin 0.4 mg/dL (0.3-1.2); Total Protein 5.2 g/dL (6.2-8.2)
--- NOTE | 2025-02-09 11:11 | P.PN ---
Subjective Progress Note Date: 02/09/25 Principal diagnosis: Status post L3-L5 posterior lateral decompression and fusion Patient evaluated at bedside, he is resting comfortably in his hospital chair. He did very well ambulating with physical therapy today and did utilize the stairs. He does feel little bit weak in the legs today. He was doing some better exercises yesterday's which caused him some quadriceps discomfort. Urinary catheter was removed about 30 minutes prior to me examining him. He is having no significant numbness or tingling to the lower extremities at this time. He denies headaches, lightheadedness, chest pain or shortness of breath Objective - Vital Signs Vital signs: Vital Signs Temp 98.1 F 02/09/25 07:14 Pulse 90 02/09/25 07:14 Resp 18 02/09/25 07:14 BP 145/70 02/09/25 07:14 Pulse Ox 94 L 02/09/25 07:14 FiO2 Intake & Output 02/08/25 02/09/25 02/09/25 18:59 06:59 18:59 Output Total 765 1580 Balance -765 -1580 Output: Drainage 110 80 Lower Back 110 80 Urine 655 1500 Other: Voiding Method Indwelling Catheter Indwelling Catheter - Exam Gen: AOx3, NAD VSS stable at this time Integument: Postop dressing is in good position and condition, Hemovac drain remains in adequate position Palpation: Mild tenderness with palpation of the lower lumbar spine ROM: Full range of motion all major muscle groups of the bilateral upper and lower extremities, no focal deficit Sensory Exam: Senory exam to light touch is intact C5-T1 Senosry exam to light touch is intact L2-S1 Motor: 4+/5 strength appreciated in the bilateral lower extremities with hip flexion, knee extension, knee flexion, plantarflexion, dorsiflexion, EHL, FHL Reflexes: 2/4 in all UE and LE Negative clonus bilaterally Negative Babinski bilaterally - Labs CBC & Chem 7: 02/09/25 05:32 02/09/25 05:32 Labs: Abnormal Lab Results - Last 24 Hours (Table) 02/09/25 02/09/25 Range/Units 05:32 05:32 RBC 3.80 L (4.40-5.60) X 10*6/uL Hgb 11.9 L (13.0-17.0) g/dL Hct 35.2 L (39.6-50.0) % Monocytes # 1.08 H (0.20-1.00) X 10*3/uL BUN/Creatinine Ratio 22.83 H (12.00-20.00) Ratio Calcium 8.1 L (8.7-10.3) mg/dL Alkaline Phosphatase 36 L (41-126) U/L Total Protein 5.2 L (6.2-8.2) g/dL Albumin 3.5 L (3.8-4.9) g/dL Assessment and Plan Assessment: Postoperative day #2 status post L3-L5 posterior lateral decompression and fusion Plan: Pain control, continue with current medications DVT prophylaxis, aspirin 81 mg daily Wound care, dressing change on 02/10/2025 Continue to monitor drain output, seems to be decreasing, hopeful removal on Weight-bear as tolerated with walker. LSO brace to be utilized when walking longer distances Monitor for urinary retention Medical recommendations appreciated Discharge planning: Pending urinary output status along with drain output, hopeful discharge to home on 02/10/2025
[2025-02-09] MEDS: ASPIRIN 81 MG PO SCH (13:05)
--- NOTE | 2025-02-10 10:09 | P.PN ---
Subjective Progress Note Date: 02/10/25 Rafa Olivo is a 79-year-old male patient of Dr. Swain who presented for an elective lumbar fusion with Dr. Goodman jaimes on 02/07/2025. Patient has a past medical history of hyperlipidemia, hypertension, osteoarthritis, psoriasis and joint replacement. At this time patient is resting comfortably in bed. Patient has Hernández catheter in place. Patient denies chest pain or shortness of breath. Patient denies nausea vomiting or diarrhea. Patient denies any urinary burning or frequency. Current vital signs temp 97.0, heart rate 58, respiratory rate 16, blood pressure 99/73 with a pulse ox of 96% on room air. On 02/08/2025 patient is alert and oriented x 3. Patient is complaining about some lower back pain. Patient denies chest pain or shortness of breath. Patient denies nausea vomiting or diarrhea. Patient denies any urinary burning or frequency. Current vital signs temp 98.0, heart rate 74, respiratory rate 18, blood pressure 119/64 with a pulse ox of 97% on room air. Discharge plan pranay to home per orthopedic services. On 02/09/2025 patient was seen and examined on the medical floor he is alert and oriented x 3 in no apparent distress, there is no fever or chills no headache or dizziness no chest pain no shortness of breath no cough no nausea or vomiting no abdominal pain no diarrhea no blood in the stools, no burning with urination no frequency or urgency and no hematuria. Vital examination reveals a temperature of 98.1 pulse 90 respiration 18 blood pressure 145/70 pulse ox 94% on room air. On 02/10/2025 patient is alert and oriented x 3. Patient denies chest pain or sh ortness of breath. Patient denies nausea vomiting or diarrhea. Patient denies any urinary burning or frequency. Current vital signs temp 98.4, heart rate 77, respiratory rate 18, blood pressure 120/71 with a pulse ox of 97% on room air. Possible discharge home today or tomorrow per surgical services. Objective - Vital Signs Vital signs: Vital Signs Temp 98.4 F 02/10/25 07:35 Pulse 77 02/10/25 07:35 Resp 18 02/10/25 07:35 BP 120/71 02/10/25 07:35 Pulse Ox 97 02/10/25 08:47 FiO2 21 02/10/25 08:47 Intake & Output 02/09/25 02/10/25 02/10/25 18:59 06:59 18:59 Intake Total 250 Output Total 395 410 Balance -395 -160 Intake: Oral 250 Output: Drainage 20 10 Lower Back 20 10 Urine 375 400 Other: Voiding Method Indwelling Catheter # Voids 2 - Exam Head normocephalic Neck supple Lungs clear to auscultation bilaterally no wheezing or crackles Heart regular rate and rhythm S1-S2, no rub or gallop Abdomen is soft nontender nondistended positive bowel sounds no hepatosplenomegaly Extremities no edema Neuro alert and orientated to 3 - Labs CBC & Chem 7: 02/09/25 05:32 02/09/25 05:32 Assessment and Plan Assessment: 1. Status post lumbar fusion with Dr. Meza on 02/07/2025 2. History of hyperlipidemia 3. History of essential hypertension 4. History of psoriasis 5. History of hernia repair Thank you for this consultation we will continue to follow patient closely throughout stay Repeat labs ordered in a.m.
--- NOTE | 2025-02-10 10:46 | P.PN ---
Subjective Progress Note Date: 02/10/25 Principal diagnosis: Status post L3-L5 posterior lateral decompression and fusion Patient evaluated at bedside, he is resting comfortably in his hospital chair. His and daughter were both present at bedside. He continues to improve with ambulation with his walker. He does feel little weak in the legs, he states this has been going on for quite some time. He has been urinating with no issues since removal of the catheter yesterday, he is passing gas. He is having no significant numbness or tingling to the lower extremities at this time. He denies headaches, lightheadedness, chest pain or shortness of breath Objective - Vital Signs Vital signs: Vital Signs Temp 98.4 F 02/10/25 07:35 Pulse 77 02/10/25 07:35 Resp 18 02/10/25 07:35 BP 120/71 02/10/25 07:35 Pulse Ox 97 02/10/25 08:47 FiO2 21 02/10/25 08:47 Intake & Output 02/09/25 02/10/25 02/10/25 18:59 06:59 18:59 Intake Total 250 Output Total 395 410 Balance -395 -160 Intake: Oral 250 Output: Drainage 20 10 Lower Back 20 10 Urine 375 400 Other: Voiding Method Indwelling Catheter # Voids 2 - Exam Gen: AOx3, NAD VSS stable at this time Integument: Postop dressing and Hemovac were both removed today at bedside. He does have some mild skin blistering on the right lateral flank. Booker are in good position and condition Palpation: Mild tenderness with palpation of the lower lumbar spine ROM: Full range of motion all major muscle groups of the bilateral upper and lower extremities, no focal deficit Sensory Exam: Senory exam to light touch is intact C5-T1 Senosry exam to light touch is intact L2-S1 Motor: 4+/5 strength appreciated in the bilateral lower extremities with hip flexion, knee extension, knee flexion, plantarflexion, dorsiflexion, EHL, FHL Reflexes: 2/4 in all UE and LE Negative clonus bilaterally Negative Babinski bilaterally - Labs CBC & Chem 7: 02/09/25 05:32 02/09/25 05:32 Assessment and Plan Assessment: Postoperative day #3 status post L3-L5 posterior lateral decompression and fusi on Plan: Pain control, continue with current medications DVT prophylaxis, aspirin 81 mg daily New dressing was applied today at bedside to the incision, discussed with jake mcdaniel to have Neosporin ordered and small bandage placed over the small blisters on the right flank. Weight-bear as tolerated with walker. LSO brace to be utilized when walking longer distances Medical recommendations appreciated Discharge planning: Discussed with the family today at bedside, plan is for discharge to home with home health care on 02/11/2025 Time with Patient: Less than 30
[2025-02-10 11:09] LABS: Basophils # (A) 0.04 X 10*3/uL (0.00-0.10); Basophils % (A) 0.4 %; Eosinophils # (A) 0.19 X 10*3/uL (0.04-0.35); Eosinophils % (A) 1.7 %; HCT 34.2 % (39.6-50.0); HGB 11.4 g/dL (13.0-17.0); Lymphocytes # (A) 1.28 X 10*3/uL (0.90-5.00); Lymphocytes % (A) 11.5 %; MCH 31.2 pg (27.0-32.0); MCHC 33.3 g/dL (32.0-37.0); MCV 93.7 FL (80.0-97.0); Mean Platelet Volume 10.7 FL (9.5-12.2); Monocytes # (A) 1.19 X 10*3/uL (0.20-1.00); Monocytes % (A) 10.7 %; NRBC Per 100 WBC 0 X 10*3/uL (0.00-0.01); Neutrophils # (A) 8.34 X 10*3/uL (1.80-7.70); Neutrophils % (A) 75.2 %; Platelet Count 172 X 10*3/uL (140-440); RBC 3.65 X 10*6/uL (4.40-5.60); RDW 12.6 % (11.5-14.5)
[2025-02-10] MEDS: MAGNESIUM HYDROXIDE 2,400 MG/30 ML CUP PO PRN (11:13)
[2025-02-10 11:43] LABS: ALT 15 U/L (10-49); AST 25 U/L (14-35); Albumin 3.2 g/dL (3.8-4.9); Alkaline Phosphatase 36 U/L (41-126); BUN/Creat Ratio 16.86 Ratio (12.00-20.00); Blood Urea Nitrogen 11.8 mg/dL (9.0-27.0); Calcium 8.1 mg/dL (8.7-10.3); Carbon Dioxide 23.5 mmol/L (21.6-31.8); Chloride 118 mmol/L (96-109); Globulin 1.6 g/dL (1.6-3.3); Glucose 117 mg/dL (70-110); Potassium 3.8 mmol/L (3.5-5.5); Sodium 158 mmol/L (135-145); Total Bilirubin 0.3 mg/dL (0.3-1.2); Total Protein 4.8 g/dL (6.2-8.2)
[2025-02-10] MEDS: NEOMYCIN-BACITRACIN-POLY OINT 14 GM TUBE TOPICAL PRN (11:46)
[2025-02-11 08:18] VITALS: BP 123/71; PULSE 75; RESP 16; TEMP 98
[2025-02-11 10:19] LABS: ALT 16 U/L (4-49); AST 24 U/L (17-59); African American GFR (CKD) >90 (>60 ml/min/1.73 sqM); Albumin 2.8 g/dL (3.5-5.0); Albumin/Globulin Ratio 1.2; Alkaline Phosphatase 42 U/L (38-126); Anion Gap 6 mmol/L; Blood Urea Nitrogen 16 mg/dL (9-20); Calcium 8.4 mg/dL (8.4-10.2); Carbon Dioxide 30 mmol/L (22-30); Chloride 97 mmol/L (98-107); Globulin 2.3 g/dL; Glucose 128 mg/dL (74-99); Non-African American GFR(CKD) >90 (>60 ml/min/1.73 sqM); Potassium 3.6 mmol/L (3.5-5.1); Sodium 133 mmol/L (137-145); Total Bilirubin 0.5 mg/dL (0.2-1.3); Total Protein 5.1 g/dL (6.3-8.2)
--- NOTE | 2025-02-11 10:52 | P.PN ---
Subjective Progress Note Date: 02/11/25 Principal diagnosis: Status post L3-L5 posterior lateral decompression and fusion Patient evaluated at bedside, he is resting comfortably in his hospital chair. His and daughter were both present at bedside. Patient stable at bedside today. He is having no significant numbness or tingling to the lower extremities at this time. He denies headaches, lightheadedness, chest pain or shortness of breath Objective - Vital Signs Vital signs: Vital Signs Temp 98.0 F 02/11/25 07:19 Pulse 75 02/11/25 07:19 Resp 16 02/11/25 07:19 BP 123/71 02/11/25 07:19 Pulse Ox 97 02/11/25 07:19 FiO2 21 02/10/25 08:47 Intake & Output 02/10/25 02/11/25 02/11/25 18:59 06:59 18:59 Output Total 800 Balance -800 Output: Urine 800 Other: Voiding Method Toilet Urinal # Voids 2 # Bowel Movements 0 - Exam Gen: AOx3, NAD VSS stable at this time Integument: Dressing is in good position condition. Palpation: Mild tenderness with palpation of the lower lumbar spine ROM: Full range of motion all major muscle groups of the bilateral upper and lower extremities, no focal deficit Sensory Exam: Senory exam to light touch is intact C5-T1 Senosry exam to light touch is intact L2-S1 Motor: 4+/5 strength appreciated in the bilateral lower extremities with hip flexion, knee extension, knee flexion, plantarflexion, dorsiflexion, EHL, FHL Reflexes: 2/4 in all UE and LE Negative clonus bilaterally Negative Babinski bilaterally - Labs CBC & Chem 7: 02/10/25 04:19 02/11/25 09:39 Labs: Abnormal Lab Results - Last 24 Hours (Table) 02/10/25 02/10/25 02/11/25 Range/Units 04: 04: 09:39 WBC 11.10 H (4.50-10.00) X 10*3/uL RBC 3.65 L (4.40-5.60) X 10*6/uL Hgb 11.4 L (13.0-17.0) g/dL Hct 34.2 L (39.6-50.0) % Immature Gran # 0.06 H (0.00-0.04) X 10*3/uL Neutrophils # 8.34 H (1.80-7.70) X 10*3/uL Monocytes # 1.19 H (0.20-1.00) X 10*3/uL Sodium 158 H 133 L (135-145) mmol/L Chloride 118 H 97 L (96-109) mmol/L Anion Gap 16.50 H (4.00-12.00) mmol/L Glucose 117 H 128 H (70-110) mg/dL Calcium 8.1 L (8.7-10.3) mg/dL Alkaline Phosphatase 36 L (41-126) U/L Total Protein 4.8 L 5.1 L (6.2-8.2) g/dL Albumin 3.2 L 2.8 L (3.8-4.9) g/dL Assessment and Plan Assessment: Postoperative day #4 status post L3-L5 posterior lateral decompression and fusion Plan: Pain control, patient will be discharged home with Maize 7.5 mg / 325 mg, gabapentin 300 mg, Flexeril 5 mg. Multiple stool softeners will also be used at discharge DVT prophylaxis, aspirin 81 mg daily Dressing instructions were discussed with patient, this to include showering Weight-bear as tolerated with walker. LSO brace to be utilized when walking longer distances Medical recommendations appreciated Discharge planning: Stable for discharge home today with home physical therapy Time with Patient: Less than 30
--- NOTE | 2025-02-11 10:57 | P.DS ---
Providers Date of admission: 02/07/25 19:46 Expected date of discharge: 02/11/25 Attending physician: Daniel Meza DO Consults: 02/07/25 15:45 Consult Physician Routine Consulting Provider: Katrin Segundo Consult Reason/Comments: medical management s.p L3-L5 decompr fusion Do you want consulting provider notified?: Yes Primary care physician: Shruthi Arrington Hospital Course: Date of admission: 02/07/2025 Date of discharge: 02/11/2025 Admission diagnosis: Status post L3-L5 posterior lateral decompression and fusion Discharge diagnosis: Same Attending physician: Dr. Meza Surgical procedures: L3-L5 posterior lateral decompression and fusion Brief history: Patient is a 79-year-old male with a history of progressive low back pain, bilateral lower extremity weakness and radiculopathy. At this point patient has failed conservative treatment measures and has opted to proceed with a elective L3-L5 posterior lateral decompression and fusion. Hospital course: Details of patient's surgery can be found in operative report. Patient tolerated the procedure well and was subsequently transported to orthopedic floor. Patient's orthopeidc and medical care was provided daily. Patient had daily laboratory tests performed for evaluation of overall blood counts. Patient had daily physical therapy to include strengthening range of motion as well as education with walker ambulation. Patient was treated with aspirin for their postoperative DVT prophylaxis during their inpatient stay. Patient was noted to have a relatively uneventful postoperative course. Patient reported satisfactory pain control with oral pain medications by postoperative day 2. Patient showed satisfactory progress with physical therapy. Patient moved steadily through the program and had no difficulty meeting the goals by postoperative day 4. Given patient's otherwise satisfactory course and having met physical therapy goals, plan is to discharge patient home on postoperative day 4. Discharge condition/disposition: Patient will be discharged home in stable condition. Discharge medications: Instructions are given on resumption of patient's normal daily medications per primary care recommendation, in addition patient will be prescribed [place] 7.5 mg / 325 mg, gabapentin 300 mg, Flexeril 5 mg, Duricef 500 mg, MiraLAX 17 g, senna S. Spine Discharge and Recovery Instructions Medications: See medication list All medication refills should be obtained through your primary care doctor or your clinic spine surgeon. Please discuss prescription refills at your follow up appointment. Do not call the hospital for medication refills. Dressing: Leave your dressing in place for a total of 5 days post operatively. Then you may remove your dressing and leave open to air. Keep the area clean and if not able to keep area clean, then cover with sterile gauze and tape. Showering: You may shower 3 days after your procedure allowing soap and water to run over incision. Do not scrub. Do not soak. Blot dry. Follow up: Please confirm a follow up appointment with your surgeon 3 weeks post operatively. Please make an appointment to follow up with your PCP in 1-2 weeks after surgery for evaluation '3 phase, 3-week plan' POST OP WEEKS 1-3 1. Lifting/carrying/pushing/pulling limited to less than 5 pounds. 2. Do not sit for longer than 15 minutes at one time. Get up and walk around. Prolonged sitting is NOT advised. If you lay down, see if you can tolerate laying down on you front (belly side) 3. Walk for periods of 15 minutes = 1 mile but no longer; do it multiple times times each day. 4. Ice your low back after activity. POST OP WEEKS 3-6 1. Lifting limited to less than 20 pounds. 2. Do not sit for longer than 30 minutes at a time. Frequently change positions. Use a sit-to stand workstation or take frequent breaks from sitting if you have returned to work. 3. Walk for 30 minutes each day. If possible, do these three or more times a day POST OP WEEKS 6+ At your 6-week appointment we will give you a physical therapy referral to focus on a core stabilization and strengthening program. You should also work on leg & buttock strengthening, hamstring & quadriceps stretching, and continue a low impact aerobic activity program such as swimming, walking, or riding a stationary bicycle. During the initial 6 weeks after your surgery, you are at the highest risk of re-injuring your spine. You should generally avoid BLT's (bending, lifting and twisting combination motions) and follow the above guidelines to reduce the chance of reinjury. You can anticipate post op appointments in our office at approximately 3 weeks and 6 weeks after your surgery. INCISION CARE: If your incision is not draining you do NOT need to cover it with a dressing. Keep your incision clean, dry and intact. In most cases, we apply skin glue, yfn or sutures to the incision at the time of surgery. This will be like a crust or have the appearance of a scab and will fall off in time on its own. The stitches or yfn need to be removed at 3 weeks post op appointment. You may begin to shower 3 days after surgery (this allows the glue to barboza well). However, please avoid scrubbing the incision sit e or peeling off any of the skin glue. This will ensure optimal healing of your incision. Also, during this time avoid soaking the incision area in water - this includes swimming pools, hot tubs or baths. No ointments, lotions or oils on the incision until your surgeon allows. Leave yfn, sutures or glue in place. Neurological dysfunction that comes on suddenly can also be a sign of a stroke. Below some common symptoms of a stroke are listed: B - balance difficulty such as sudden onset walking or leaning to one side - NEW E - eye problem such as sudden double vision or trouble seeing on one side - NEW F - Facial weakness or numbness on one side - NEW A - Arm or leg weakness or numbness on one side - NEW S - Slurred speech or difficulty with word finding - NEW T - Time is BRAIN! Call 911 as soon as you recognize these symptoms Diet: Consume a regular diet rich in vegetables and lean protein such as chicken or fish. You should consume in a ratio of approximately 20% fats|40% carbohydrates|40%protein. Vegetables, sweet potatoes, brown rice or quinoa are examples of good carbohydrates. Chips, white bread, cookies and sweets/sugar are examples of bad carbohydrates. Limit your bad carbs, go wild with good carbs. "Life's Simple 7" Guidelines as per [place] [employer] These will help you reclaim your life after surgery and rigger helper in your recovery, keeping in mind your restrictions. (1) Get Active. Physical activity can help people lose weight, control high blood pressure and cholesterol, feel emotionally better, and sleep better. (2) Control Cholesterol. Avoid a diet high in saturated fat, trans fat, & cholesterol. Limit whole milk & cream, ice cream, butter, egg yolks, processed meats (like sausage and hot dogs), and fatty meats. Choose healthy foods that are low in saturated fat, trans fat and cholesterol which include: Fruits and vegetables, fiber rich grain products (like whole grain pasta and brown rice), lean meat such as chicken, fish, nuts, seeds, and legumes. (3) Eat Better. Eat small portions. Shop at the grocery with a list and do not stray from it. Tips for a healthy diet include: Limit sodium intake to less than 1500mg daily, avoid prepackaged, processed, and fast foods, choose a diet rich in fruits, vegetables, and whole grain, high fiber foods, and limit saturated & cholesterol in your diet. (4) Manage Blood Pressure. If you have high blood pressure, you should have a cuff at home so that you can check your blood pressure regularly. Be sure you have a good cuff. An arm one is generally better than a wrist one. Bring the cuff to a doctor's appointment to validate that the measurements that your cuff are taking are accurate. Take your blood pressure twice daily when you are sitting down and relaxing. Record the numbers in a log and bring this log with you to your doctors' appointments. (5) Lose Weight if your BMI is above 25. A healthy BMI is between 19-25. To calculate Your BMI, you may use a Standard BMI Calculator on the NIH BMI website: <www.nhlbi.nih.gov/guidelines/obesity/BMI/bmicalc.htm>. Weigh oneself daily. If you are overweight, set a goal to lose weight. A pound a week loss if needed is a good target. (6) Reduce Blood Sugar. Limit foods and liquids with "added sugars." (Added sugars include sucrose, fructose, glucose, maltose, dextrose, high fructose corn syrup, corn syrup, concentrated fruit juice and honey). (7) Stop Smoking. If you smoke, quitting smoking is one of the best things that you can do for your health. Smoking increases your risk of heart attack, stroke, and peripheral vascular disease, which is a build-up of plaque in your arteries. Please discard all the cigarettes and lighters in your house. Have a plan for what you will do when you have the urge to smoke. Direct and second- hand smoke shortens your life as well as the lives of your family, friends and others around you. For your health and the health of those around you, please consider quitting! Proper Bending Body Mechanics: Maintain a wide stance with one foot slightly in front of the other. Keep your back straight. Bend utilizing the strength in your hips and knees. Do not bend at the waist. Maintain the lifted object at your waist-level close to your body. Avoid lifting weight that causes immediately pain or pain anywhere in the body afterwards. Smoking/Nicotine If there was ever one thing that you could do to increase your overall health, decrease your risk of cardiovascular problems by about 39% the second you make the choice, it is to STOP SMOKING. Your body's most instant gratification is the second you stop smoking. We have all heard the studies, read the articles but it is true, smoking is extremely bad for your overall health, and moreover it is detrimental to your bone health. Nicotine, IN ANY FORM, kills bone cells, prevents your body from healing fractures, and significantly prolongs healing after surgery. In spine surgery specifically, it increases your risk of not healing your bones to create a fusion and increases your risk of having a revision surgery due to this up to 60%. I know it is hard. I know it feels impossible. But there are ways. Take control of your life. We are here to help you through it. And when you are ready, ask us and we can direct you to help if you desire. Use the START Plan to Quit Smoking (please visit the Helpguide.org website listed below for more information): S = Set a quit date. Choose a date within the next 2 weeks, so you have enough time to prepare without losing your motivation to quit. If you mainly smoke at work, quit on the weekend, so you have a few days to adjust to the change. T = Tell family, friends, and co-workers that you plan to quit. Let your friends and family in on your plan to quit smoking and tell them you need their support and encouragement to stop. Look for a quit uzma who wants to stop smoking as well. You can help each other get through the rough times. A = Anticipate and plan for the challenges you'll face while quitting. Most people who begin smoking again do so within the first 3 months. You can help yourself make it through by preparing ahead for common challenges, such as nicotine withdrawal and cigarette cravings. R = Remove cigarettes and other tobacco products from your home, car, and work. Throw away all your cigarettes (no emergency pack!), lighters, ashtrays, and matches. Wash your clothes and freshen up anything that smells like smoke. Shampoo your car, clean your drapes and carpet, and steam your furniture. T = Talk to your doctor about getting help to quit. Your doctor can prescribe medication to help with withdrawal and suggest other alternatives. If you can't see a doctor, you can get many products over the counter at your local pharmacy or grocery store, including the nicotine patch, nicotine lozenges, and nicotine gum. Resources for Quitting Smoking: <https://www.[place].gov/documents/[place] [facility]/Quit_Tobacco_Resources_for_pat ients_313480_7.pdf> Supplementation: Take recommended dosages of Vitamin D and Calcium to help fortify your bones and help them to heal. See your health maintenance packet for dosages and r ecommended levels. DVT/VTE prophylaxis: You will be given compression stockings from the hospital. Wear these daily for the first two weeks after surgery. You may take them off at night. You may be prescribed a medication to help thin your blood. Take this as directed. If you are not prescribed this medication, early and frequent ambulation has been shown to be the best prophylaxis to deep vein thrombosis and sequelae related to this event. Procedures: L3-L5 posterior lateral decompression and fusion Patient Condition at Discharge: Good Plan - Discharge Summary Discharge Rx Participant: No New Discharge Prescriptions: New cefaDROXiL [Duricef] 500 mg PO Q12HR 5 Days #10 cap Cyclobenzaprine [Flexeril] 5 mg PO BID PRN #30 tablet PRN Reason: Muscle Spasm polyethylene glycoL 3350 [Miralax] 17 gm PO DAILY PRN #21 packet PRN Reason: Constipation Gabapentin [Neurontin] 300 mg PO TID 30 Days #90 cap HYDROcodone/APAP 7.5-325MG [[place] 7.5] 1 each PO Q6HR PRN #28 tab PRN Reason: Pain Sennosides/Docusate Sodium [Senna-S 8.6-50 mg Tablet] 2 each PO DAILY PRN #30 tablet PRN Reason: Constipation No Action Lisinopril-Hctz 20-12.5 mg [Zestoretic 20-12.5] 1 tab PO QAM Naproxen (Unknown Dose) 1 tab PO BID [place] 500 mg PO DAILY Acetylcysteine [Nac] 600 mg PO HS lysine HCL [l-Lysine] 500 mg PO HS Ubidecarenone [Co Q-10] 100 mg PO HS Quercetin 500 mg PO HS Magnesium. 420 mg PO HS Tumeric (Unknown Dose) 1 tab PO DAILY Multivitamins, Thera [Multivitamin (formulary)] 1 tab PO DAILY Fenofibrate Nanocrystallized [Fenofibrate] 145 mg PO HS Cholecalciferol [Vitamin D3 (125 Mcg = 5000 Iu)] 125 mcg PO DAILY Magnesium Glycinate 500 mg PO HS Cranberry Fruit Extract [Cranberry] 500 mg PO DAILY Aspirin [Adult Low Dose Aspirin EC] 81 mg PO HS Acetaminophen [Tylenol Extra Strength] 500 - 1,000 mg PO Q4-6H PRN PRN Reason: Pain Zinc (Unknown Dose) 1 tab PO HS Discharge Medication List Acetaminophen [Tylenol Extra Strength] 500 - 1,000 mg PO Q4-6H PRN 02/04/25 [History] Acetylcysteine [Nac] 600 mg PO HS 02/04/25 [History] Aspirin [Adult Low Dose Aspirin EC] 81 mg PO HS 02/04/25 [History] Cholecalciferol [Vitamin D3 (125 Mcg = 5000 Iu)] 125 mcg PO DAILY 02/04/25 [History] Cranberry Fruit Extract [Cranberry] 500 mg PO DAILY 02/04/25 [History] Fenofibrate Nanocrystallized [Fenofibrate] 145 mg PO HS 02/04/25 [History] Lisinopril-Hctz 20-12.5 mg [Zestoretic 20-12.5] 1 tab PO QAM 02/04/25 [History] Magnesium Glycinate 500 mg PO HS 02/04/25 [History] Magnesium. 420 mg PO HS 02/04/25 [History] Multivitamins, Thera [Multivitamin (formulary)] 1 tab PO DAILY 02/04/25 [History] Naproxen (Unknown Dose) 1 tab PO BID 02/04/25 [History] Quercetin 500 mg PO HS 02/04/25 [History] [place] 500 mg PO DAILY 02/04/25 [History] Tumeric (Unknown Dose) 1 tab PO DAILY 02/04/25 [History] Ubidecarenone [Co Q-10] 100 mg PO HS 02/04/25 [History] Zinc (Unknown Dose) 1 tab PO HS 02/04/25 [History] lysine HCL [l-Lysine] 500 mg PO HS 02/04/25 [History] Cyclobenzaprine [Flexeril] 5 mg PO BID PRN #30 tablet 02/11/25 [Rx] Gabapentin [Neurontin] 300 mg PO TID 30 Days #90 cap 02/11/25 [Rx] HYDROcodone/APAP 7.5-325MG [[place] 7.5] 1 each PO Q6HR PRN #28 tab 02/11/25 [Rx] Sennosides/Docusate Sodium [Senna-S 8.6-50 mg Tablet] 2 each PO DAILY PRN #30 tablet 02/11/25 [Rx] cefaDROXiL [Duricef] 500 mg PO Q12HR 5 Days #10 cap 02/11/25 [Rx] polyethylene glycoL 3350 [Miralax] 17 gm PO DAILY PRN #21 packet 02/11/25 [Rx] Follow up Appointment(s)/Referral(s): Estela Rolon NPC [Nurse Practitioner] - 2 Weeks [facility], [NON-STAFF] - 1-2 Days (will call to set up appointment. ) Activity/Diet/Wound Care/Special Instructions: Spine Discharge and Recovery Instructions Date of Surgery: 02/07/2025 Diagnosis: 1. 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 NEUROGENIC CLAUDICATION 3. LUMBAR STENOSIS WITH RADICULOPATHY B/L LE 4. LOW BACK PAIN 5. BLE WEAKNES Procedure: L3-L5 decompression and fusion Medications: See medication list All medication refills should be obtained through your primary care doctor or your clinic spine surgeon. Please discuss prescription refills at your follow up appointment. Do not call the hospital for medication refills. Dressing: Leave your dressing in place for a total of 5 days post operatively. Then you may remove your dressing and leave open to air. Keep the area clean and if not able to keep area clean, then cover with sterile gauze and tape. Showering: You may shower 3 days after your procedure allowing soap and water to run over incision. Do not scrub. Do not soak. Blot dry. Follow up: Please confirm a follow up appointment with your surgeon 3 weeks post operatively. Please make an appointment to follow up with your PCP in 1-2 weeks after surgery for evaluation '3 phase, 3-week plan' POST OP WEEKS 1-3 1. Lifting/carrying/pushing/pulling limited to less than 5 pounds. 2. Do not sit for longer than 15 minutes at one time. Get up and walk around. Prolonged sitting is NOT advised. If you lay down, see if you can tolerate laying down on you front (belly side) 3. Walk for periods of 15 minutes = 1 mile but no longer; do it multiple times times each day. 4. Ice your low back after activity. POST OP WEEKS 3-6 1. Lifting limited to less than 20 pounds. 2. Do not sit for longer than 30 minutes at a time. Frequently change positions. Use a sit-to stand workstation or take frequent breaks from sitting if you have returned to work. 3. Walk for 30 minutes each day. If possible, do these three or more times a day POST OP WEEKS 6+ At your 6-week appointment we will give you a physical therapy referral to focus on a core stabilization and strengthening program. You should also work on leg & buttock strengthening, hamstring & quadriceps stretching, and continue a low impact aerobic activity program such as swimming, walking, or riding a stationary bicycle. During the initial 6 weeks after your surgery, you are at the highest risk of re-injuring your spine. You should generally avoid BLT's (bending, lifting and twisting combination motions) and follow the above guidelines to reduce the chance of reinjury. You can anticipate post op appointments in our office at approximately 3 weeks and 6 weeks after your surgery. INCISION CARE: If your incision is not draining you do NOT need to cover it with a dressing. Keep your incision clean, dry and intact. In most cases, we apply skin glue, yfn or sutures to the incision at the time of surgery. This will be like a crust or have the appearance of a scab and will fall off in time on its own. The stitches or yfn need to be removed at 3 weeks post op appointment. You may begin to shower 3 days after surgery (this allows the glue to barboza well). However, please avoid scrubbing the incision site or peeling off any of the skin glue. This will ensure optimal healing of your incision. Also, during this time avoid soaking the incision area in water - this includes swimming pools, hot tubs or baths. No ointments, lotions or oils on the incision until your surgeon allows. Leave yfn, sutures or glue in place. Neurological dysfunction that comes on suddenly can also be a sign of a stroke. Below some common symptoms of a stroke are listed: B - balance difficulty such as sudden onset walking or leaning to one side - NEW E - eye problem such as sudden double vision or trouble seeing on one side - NEW F - Facial weakness or numbness on one side - NEW A - Arm or leg weakness or numbness on one side - NEW S - Slurred speech or difficulty with word finding - NEW T - Time is BRAIN! Call 911 as soon as you recognize these symptoms Diet: Consume a regular diet rich in vegetables and lean protein such as chicken or fish. You should consume in a ratio of approximately 20% fats|40% carbohydrates|40%protein. Vegetables, sweet potatoes, brown rice or quinoa are examples of good carbohydrates. Chips, white bread, cookies and sweets/sugar are examples of bad carbohydrates. Limit your bad carbs, go wild with good carbs. "Life's Simple 7" Guidelines as per [place] [employer] These will help you reclaim your life after surgery and rigger helper in your recovery, keeping in mind your restrictions. (1) Get Active. Physical activity can help people lose weight, control high blood pressure and cholesterol, feel emotionally better, and sleep better. (2) Control Cholesterol. Avoid a diet high in saturated fat, trans fat, & cholesterol. Limit whole milk & cream, ice cream, butter, egg yolks, processed meats (like sausage and hot dogs), and fatty meats. Choose healthy foods that are low in saturated fat, trans fat and cholesterol which include: Fruits and vegetables, fiber rich grain products (like whole grain pasta and brown rice), lean meat such as chicken, fish, nuts, seeds, and legumes. (3) Eat Better. Eat small portions. Shop at the grocery with a list and do not stray from it. Tips for a healthy diet include: Limit sodium intake to less than 1500mg daily, avoid prepackaged, processed, and fast foods, choose a diet rich in fruits, vegetables, and whole grain, high fiber foods, and limit saturated & cholesterol in your diet. (4) Manage Blood Pressure. If you have high blood pressure, you should have a cuff at home so that you can check your blood pressure regularly. Be sure you have a good cuff. An arm one is generally better than a wrist one. Bring the cuff to a doctor's appointment to validate that the measurements that your cuff are taking are accurate. Take your blood pressure twice daily when you are sitting down and relaxing. Record the numbers in a log and bring this log with you to your doctors' appointments. (5) Lose Weight if your BMI is above 25. A healthy BMI is between 19-25. To calculate Your BMI, you may use a Standard BMI Calculator on the NIH BMI website: <www.nhlbi.nih.gov/guidelines/obesity/BMI/bmicalc.htm>. Weigh oneself daily. If you are overweight, set a goal to lose weight. A pound a week loss if needed is a good target. (6) Reduce Blood Sugar. Limit foods and liquids with "added sugars." (Added sugars include sucrose, fructose, glucose, maltose, dextrose, high fructose corn syrup, corn syrup, concentrated fruit juice and honey). (7) Stop Smoking. If you smoke, quitting smoking is one of the best things that you can do for your health. Smoking increases your risk of heart attack, stroke, and peripheral vascular disease, which is a build-up of plaque in your arteries. Please discard all the cigarettes and lighters in your house. Have a plan for what you will do when you have the urge to smoke. Direct and second- hand smoke shortens your life as well as the lives of your family, friends and others around you. For your health and the health of those around you, please consider quitting! Proper Bending Body Mechanics: Maintain a wide stance with one foot slightly in front of the other. Keep your back straight. Bend utilizing the strength in your hips and knees. Do not bend at the waist. Maintain the lifted object at your waist-level close to your body. Avoid lifting weight that causes immediately pain or pain anywhere in the body afterwards. Smoking/Nicotine If there was ever one thing that you could do to increase your overall health, decrease your risk of cardiovascular problems by about 39% the second you make the choice, it is to STOP SMOKING. Your body's most instant gratification is the second you stop smoking. We have all heard the studies, read the articles but it is true, smoking is extremely bad for your overall health, and moreover it is detrimental to your bone health. Nicotine, IN ANY FORM, kills bone cells, prevents your body from healing fractures, and significantly prolongs healing after surgery. In spine surgery specifically, it increases your risk of not healing your bones to create a fusion and increases your risk of having a revision surgery due to this up to 60%. I know it is hard. I know it feels impossible. But there are ways. Take control of your life. We are here to help you through it. And when you are ready, ask us and we can direct you to help if you desire. Use the START Plan to Quit Smoking (please visit the Helpguide.org website listed below for more information): S = Set a quit date. Choose a date within the next 2 weeks, so you have enough time to prepare without losing your motivation to quit. If you mainly smoke at work, quit on the weekend, so you have a few days to adjust to the change. T = Tell family, friends, and co-workers that you plan to quit. Let your friends and family in on your plan to quit smoking and tell them you need their support and encouragement to stop. Look for a quit uzma who wants to stop smoking as well. You can help each other get through the rough times. A = Anticipate and plan for the challenges you'll face while quitting. Most people who begin smoking again do so within the first 3 months. You can help yourself make it through by preparing ahead for common challenges, such as nicotine withdrawal and cigarette cravings. R = Remove cigarettes and other tobacco products from your home, car, and work. Throw away all your cigarettes (no emergency pack!), lighters, ashtrays, and matches. Wash your clothes and freshen up anything that smells like smoke. Shampoo your car, clean your drapes and carpet, and steam your furniture. T = Talk to your doctor about getting help to quit. Your doctor can prescribe medication to help with withdrawal and suggest other alternatives. If you can't see a doctor, you can get many products over the counter at your local pharmacy or grocery store, including the nicotine patch, nicotine lozenges, and nicotine gum. Resources for Quitting Smoking: <https://www.[place].gov/documents/[place] [facility]/ Quit_Tobacco_Resources_for_patients_313480_7.pdf> Supplementation: Take recommended dosages of Vitamin D and Calcium to help fortify your bones and help them to heal. See your health maintenance packet for dosages and recommended levels. DVT/VTE prophylaxis: You will be given compression stockings from the hospital. Wear these daily for the first two weeks after surgery. You may take them off at night. You may be prescribed a medication to help thin your blood. Take this as directed. If you are not prescribed this medication, early and frequent ambulation has been shown to be the best prophylaxis to deep vein thrombosis and sequelae related to this event. Discharge Disposition: HOME WITH HOME HEALTH SERVICES
--- NOTE | 2025-02-11 17:51 | P.PN ---
Subjective Progress Note Date: 02/11/25 Rafa Olivo is a 79-year-old male patient of Dr. Swain who presented for an elective lumbar fusion with Dr. Goodman jaimes on 02/07/2025. Patient has a past medical history of hyperlipidemia, hypertension, osteoarthritis, psoriasis and joint replacement. At this time patient is resting comfortably in bed. Patient has Hernández catheter in place. Patient denies chest pain or shortness of breath. Patient denies nausea vomiting or diarrhea. Patient denies any urinary burning or frequency. Current vital signs temp 97.0, heart rate 58, respiratory rate 16, blood pressure 99/73 with a pulse ox of 96% on room air. On 02/08/2025 patient is alert and oriented x 3. Patient is complaining about some lower back pain. Patient denies chest pain or shortness of breath. Patient denies nausea vomiting or diarrhea. Patient denies any urinary burning or frequency. Current vital signs temp 98.0, heart rate 74, respiratory rate 18, blood pressure 119/64 with a pulse ox of 97% on room air. Discharge plan pranay to home per orthopedic services. On 02/09/2025 patient was seen and examined on the medical floor he is alert and oriented x 3 in no apparent distress, there is no fever or chills no headache or dizziness no chest pain no shortness of breath no cough no nausea or vomiting no abdominal pain no diarrhea no blood in the stools, no burning with urination no frequency or urgency and no hematuria. Vital examination reveals a temperature of 98.1 pulse 90 respiration 18 blood pressure 145/70 pulse ox 94% on room air. On 02/10/2025 patient is alert and oriented x 3. Patient denies chest pain or sh ortness of breath. Patient denies nausea vomiting or diarrhea. Patient denies any urinary burning or frequency. Current vital signs temp 98.4, heart rate 77, respiratory rate 18, blood pressure 120/71 with a pulse ox of 97% on room air. Possible discharge home today or tomorrow per surgical services. On 02/11/2025 patient was seen and examined on the medical floor he is alert and oriented x 3 in no apparent distress, there is no fever or chills no headache or dizziness no chest pain no shortness of breath no cough no nausea or vomiting no abdominal pain no diarrhea no blood in the stools, no burning with urination no frequency or urgency and no hematuria. He is scheduled for discharge today. Objective - Vital Signs Vital signs: Vital Signs Temp 98.0 F 02/11/25 07:19 Pulse 75 02/11/25 07:19 Resp 16 02/11/25 07:19 BP 123/71 02/11/25 07:19 Pulse Ox 97 02/11/25 07:19 FiO2 21 02/10/25 08:47 Intake & Output 02/10/25 02/11/25 02/11/25 18:59 06:59 18:59 Output Total 800 Balance -800 Output: Urine 800 Other: Voiding Method Toilet Toilet Urinal Urinal # Voids 2 # Bowel Movements 0 - Exam Head normocephalic Neck supple Lungs clear to auscultation bilaterally no wheezing or crackles Heart regular rate and rhythm S1-S2, no rub or gallop Abdomen is soft nontender nondistended positive bowel sounds no hepa tosplenomegaly Extremities no edema Neuro alert and orientated to 3 - Labs CBC & Chem 7: 02/10/25 04:19 02/11/25 09:39 Labs: Abnormal Lab Results - Last 24 Hours (Table) 02/11/25 Range/Units 09:39 Sodium 133 L (137-145) mmol/L Chloride 97 L (98-107) mmol/L Glucose 128 H (74-99) mg/dL Total Protein 5.1 L (6.3-8.2) g/dL Albumin 2.8 L (3.5-5.0) g/dL Assessment and Plan Assessment: 1. Status post lumbar fusion with Dr. Meza on 02/07/2025 2. History of hyperlipidemia 3. History of essential hypertension 4. History of psoriasis 5. History of hernia repair Thank you for this consultation we will continue to follow patient closely throughout stay Repeat labs ordered in a.m.
== END 2025-02-11 13:27 | disposition home health service (06) ==
LOC: OR 09:45 → 4SSUR 15:44 → OR 19:46 → 4SSUR 19:46
PROVIDERS: ADMIT Orthopaedic Surgery; ATTEND Orthopaedic Surgery
DX: M48.062 Spinal stenosis, lumbar region with neurogenic claudication (principal); M47.16 Other spondylosis with myelopathy, lumbar region; M47.26 Other spondylosis with radiculopathy, lumbar region; G97.0 Cerebrospinal fluid leak from spinal puncture; Y84.4 Aspiration of fluid as the cause of abnormal reaction of the patient, or of later complication, without mention of misadventure at the time of the procedure; E78.5 Hyperlipidemia, unspecified; I10 Essential (primary) hypertension; M43.16 Spondylolisthesis, lumbar region; L40.9 Psoriasis, unspecified; Z79.82 Long term (current) use of aspirin; Z87.891 Personal history of nicotine dependence; Z96.653 Presence of artificial knee joint, bilateral; Z88.0 Allergy status to penicillin; Z79.899 Other long term (current) drug therapy; Z79.1 Long term (current) use of non-steroidal anti-inflammatories (NSAID)
CPT/HCPCS: 94760; 97161; 80053 ×3; 85025 ×2; 72100; 72131; 22633; 22634; 63052; 63053; 22853 ×2; 20930; 20936; 22842; G0378 ×5; C1713 ×2; C1762; C1734; J3370; J0330; J1580; J2710; J0690 ×3; J2405; J2003; J3010; J1171 ×2; J2704; J1596

== ENCOUNTER → 2025-05-07 | Outpatient (CLI) | payer MEDICARE ==
--- NOTE | 2025-05-07 12:56 | XR ---
EXAMINATION TYPE: XR ankle complete RT DATE OF EXAM: 05/07/2025 COMPARISON: NONE HISTORY: Right ankle sprain, pain TECHNIQUE: Frontal, lateral and oblique images of the right ankle are obtained. FINDINGS: There is no acute fracture/dislocation evident. The joint spaces appear within normal alexander its. Mild soft tissue swelling over the lateral malleolus. Moderate-sized plantar calcaneal enthesoph yte. IMPRESSION: 1. No acute fracture or dislocation. 2. Mild soft tissue swelling over the lateral malleolus. [facility], , 05/07/2025 12:54 PM
== END | disposition home or self-care (01) ==
LOC: RADXRMAIN 11:46
PROVIDERS: ATTEND Family Medicine
DX: S93.491A Sprain of other ligament of right ankle, initial encounter (principal); X58.XXXA Exposure to other specified factors, initial encounter